=== PATIENT | female | born 1950 | race Caucasian/White ===

== ENCOUNTER 2017-07-02 18:34 | Inpatient (IN) | payer OTHER ==
[~2017-07-02] VITALS: Ht 162.6 cm; Wt 66.9 kg
[~2017-07-02 18:34] MED LIST: ASPIRIN325 MG PO; ATARAX,VISTARIL25 MG PO; CARVEDILOL25 MG PO; CLONAZEPAM0.5 MG PO; COZAAR25 MG PO; CYMBALTA30 MG PO; DOCUSATE SODIU100 MG PO; EPITOL200 MG PO; FENOFIBRIC ACI135 MG PO; GABAPENTIN100 MG PO; GABAPENTIN400 MG PO; HYDROCHLOROTH12.5 M3 PO; HYDROCHLOROTHIA25 MG PO; HYOMAX0.125 MG PO; K-DUR20 MEQ PO; KENALOG,ARISTOC80 G1 TP; LAMICTAL150 M1 PO; LAMICTAL200 MG PO; LANSOPRAZOLE30 MG PO; LEVAQUIN500 MG PO; LOMOTIL,LONO1 TABLET PO; LOPRESSOR25 MG PO; LOSARTAN POTAS100 MG PO; Levsin PO; METOPROLOL SUCC25 MG PO; METOPROLOL TART25 MG PO; NIFEDIPINE ER90 MG PO; NORVASC5 MG PO; OLANZAPINE2.5 MG PO; OXYCODONE HCL15 MG PO; PLAVIX75 MG PO; POTASSIUM CHLO10 ME3 PO; PRAVASTATIN SOD80 MG PO; PREDNISONE20 MG PO; PREVACID30 MG PO; REMERON15 M2 PO; Remeron PO; SEROQUEL200 MG PO; TEGRETOL200 MG PO; TOPROL XL50 MG PO; TRAZODONE HCL50 MG PO; TRILIPIX135 MG PO; TYLENOL WITH C1 EACH PO; Toprol XL PO; ULTRAM50 MG PO; VALSARTAN320 MG PO; WELLBUTRIN SR100 MG PO; XANAX0.5 MG PO; XANAX1 MG PO; ZOFRAN4 MG PO
[2017-07-02 19:22] LABS: HEMATOCRIT 40.1 % (36.0-46.0); MCH 29.7 PG (29.0-34.0); MCHC 34.9 G/DL (30.0-36.0); MCV 85.1 FL (83-99); MEAN PLAT.VOLUME 12.1 uM^3 (9.5-12.4); PLATELET COUNT 93 K/uL (156-360); RBC DIS.WIDTH-CV 12.3 % (11.8-14.6); RBC DIS.WIDTH-SD 38.2 % (39-53); RED BLOOD COUNT 4.71 M/uL (3.80-5.20); WHITE BLOOD COUNT 6.2 K/uL (4.1-10.2)
[2017-07-02 19:34] LABS: ANION GAP 24 MEQ/L (2-14); CHLORIDE 90 MEQ/L (99-109); DIRECT BILIRUBIN 0.1 mg/dL (0.0-0.3); POTASSIUM 3.6 MEQ/L (3.7-5.4); SAMPLE HEMOLYSIS CHECK 0; SAMPLE ICTERIC CHECK 0; SAMPLE LIPEMIA CHECK 0; SODIUM 130 MEQ/L (136-147); TOTAL BILIRUBIN 0.5 MG/DL (0.0-1.0)
[2017-07-02 19:59] LABS: BASE EXCESS -10.3 mEq/L (-3 to +3); BICARBONATE 14.8 mEq/L (22-26); CARBOXY HGB 1.9 % (0-5); COMMENTS - BLOOD GASES A+C+; DEVICE RA; PCO2 30 mm Hg (35-45); PO2 73 mm Hg (80-100); SITE LR; TOTAL RESP RATE 16 resp/min
[2017-07-02 20:03] LABS: ALKALINE PHOSPHATASE 78 IU/L (3-129); GFR ESTIMATE (CALCULATED) 8 mL/min/; GLUCOSE 164 mg/dL (70-99); LIPASE 308 U/L (1.0-51.0); UREA NITROGEN (BUN) 106 mg/dL (9-23)
[2017-07-02] MEDS ORDERED: LAMOTRIGINE200 MG PO (22:15)
[2017-07-02] MEDS ORDERED: POTASSIUM CHLO10 ME4 PO (22:16)
[2017-07-02] MEDS ORDERED: OLANZAPINE5 MG PO (22:16)
[2017-07-02] MEDS ORDERED: MIRTAZAPINE30 MG PO (22:17)
[2017-07-02] MEDS ORDERED: ZOLPIDEM TARTRA10 MG PO (22:18)
[2017-07-02] MEDS ORDERED: ERGOCALCIF50000 UNIT PO (22:19)
[2017-07-02] MEDS ORDERED: MAGNESIUM CHLOR64 MG PO (22:28)
[2017-07-03 00:39] VITALS: BP 177/77
[2017-07-03 06:05] LABS: ADD MIUA? YES; BILIRUBIN NEGATIVE; BLOOD MODERATE; COLOR YELLOW ((YELLOW)); GLUCOSE (STRIP) NEGATIVE; KETONES NEGATIVE; LEUKOCYTES LARGE; NITRITE NEGATIVE; PROTEIN (STRIP) NEGATIVE; SPECIFIC GRAVITY 1.013 (1.000-1.030); UROBILINOGEN 0.2 MG/DL (0.2-1.0)
[2017-07-03 06:37] LABS: HEMATOCRIT 35.4 % (36.0-46.0); MCH 30.7 PG (29.0-34.0); MCHC 35.6 G/DL (30.0-36.0); MCV 86.1 FL (83-99); MEAN PLAT.VOLUME 12.3 uM^3 (9.5-12.4); PLATELET COUNT 85 K/uL (156-360); RBC DIS.WIDTH-CV 12.6 % (11.8-14.6); RED BLOOD COUNT 4.11 M/uL (3.80-5.20); WHITE BLOOD COUNT 6.6 K/uL (4.1-10.2)
[2017-07-03 06:53] LABS: BACTERIA 3+ /HPF; CASTS NONE SEEN /LPF; CRYSTALS NONE SEEN; EPITHELIAL CELLS 2+ /HPF; MUCUS NONE SEEN /LPF; UCUL ADDED? YES; WHITE BLOOD CELLS 15-20 /HPF (0-5)
[2017-07-03 07:15] VITALS: BP 159/80
[2017-07-03 07:17] LABS: ANION GAP 20 MEQ/L (2-14); CHLORIDE 101 MEQ/L (99-109); GFR ESTIMATE (CALCULATED) 12 mL/min/; GLUCOSE 113 mg/dL (70-99); POTASSIUM 3.5 MEQ/L (3.7-5.4); SAMPLE HEMOLYSIS CHECK 0; SAMPLE ICTERIC CHECK 0; SAMPLE LIPEMIA CHECK 0; SODIUM 137 MEQ/L (136-147); UREA NITROGEN (BUN) 99 mg/dL (9-23)
[2017-07-03 08:34] LABS: AMYLASE 208 IU/L (1-118); HDL CHOLESTEROL 31 MG/DL (Desirable>=50); LDL CHOLESTEROL 113 mg/dL (Desirable<100); NON-HDL CHOLESTEROL 164 mg/dL (Desirable<160); TOTAL CHOLESTEROL 195 mg/dL (Desirable<200); TRIGLYCERIDES 254 MG/DL (Normal: <150)
[2017-07-03 15:50] VITALS: BP 102/56
[2017-07-03 16:20] LABS: ANION GAP 15 MEQ/L (2-14); CHLORIDE 105 MEQ/L (99-109); GLUCOSE 105 mg/dL (70-99); POTASSIUM 3.5 MEQ/L (3.7-5.4); SAMPLE HEMOLYSIS CHECK 0; SAMPLE ICTERIC CHECK 0; SAMPLE LIPEMIA CHECK 0; SODIUM 138 MEQ/L (136-147); UREA NITROGEN (BUN) 92 mg/dL (9-23)
[2017-07-03 16:28] LABS: GFR ESTIMATE (CALCULATED) 16 mL/min/
[2017-07-03 20:44] VITALS: BP 90/50
[2017-07-03 23:51] VITALS: BP 117/56
[2017-07-04 06:47] VITALS: BP 109/56
[2017-07-04 06:55] LABS: EOSINOPHIL (%) 0.3 % (0-5); IMMATURE GRANULOCYTE COUNT 0.1 K/uL; INSTRUMENT ABS NEUTROPHIL CT 4.3 K/uL; LYMPHOCYTE COUNT 1.1 K/uL (1.0-2.8); MCH 31.5 PG (29.0-34.0); MCHC 36.8 G/DL (30.0-36.0); MCV 85.6 FL (83-99); MEAN PLAT.VOLUME 11.9 uM^3 (9.5-12.4); MONOCYTE (%) 10.6 % (3-12); MONOCYTE COUNT 0.7 K/uL (0-0.8); NEUTROPHIL (%) 69.7 % (45-76); NEUTROPHIL COUNT 4.3 K/uL (1.8-6.4); PLATELET COUNT 63 K/uL (156-360); RBC DIS.WIDTH-CV 12.6 % (11.8-14.6); RBC DIS.WIDTH-SD 39.6 % (39-53); RED BLOOD COUNT 3.27 M/uL (3.80-5.20); WHITE BLOOD COUNT 6.2 K/uL (4.1-10.2)
[2017-07-04 08:14] LABS: ALKALINE PHOSPHATASE 62 IU/L (3-129); ANION GAP 10 MEQ/L (2-14); CHLORIDE 111 MEQ/L (99-109); GLUCOSE 95 mg/dL (70-99); POTASSIUM 3.7 MEQ/L (3.7-5.4); SAMPLE HEMOLYSIS CHECK 0; SAMPLE ICTERIC CHECK 0; SAMPLE LIPEMIA CHECK 0; SODIUM 141 MEQ/L (136-147); UREA NITROGEN (BUN) 61 mg/dL (9-23)
[2017-07-04 08:15] LABS: GFR ESTIMATE (CALCULATED) 34 mL/min/; TOTAL BILIRUBIN 0.8 MG/DL (0.0-1.0)
[2017-07-04 08:31] LABS: ANION GAP 12 MEQ/L (2-14); CHLORIDE 110 MEQ/L (99-109); CREATINE KINASE 539 IU/L (1-294); GFR ESTIMATE (CALCULATED) 34 mL/min/; GLUCOSE 95 mg/dL (70-99); LIPASE 259 U/L (1.0-51.0); POTASSIUM 3.6 MEQ/L (3.7-5.4); SAMPLE HEMOLYSIS CHECK 0; SAMPLE ICTERIC CHECK 0; SAMPLE LIPEMIA CHECK 0; SODIUM 141 MEQ/L (136-147); UREA NITROGEN (BUN) 62 mg/dL (9-23); URIC ACID 11.5 mg/dL (3.1-9.2)
[2017-07-04 08:32] LABS: MAGNESIUM < 0.5 mg/dl (1.3-2.7)
[2017-07-04 10:51] VITALS: BP 125/60
[2017-07-04 12:43] LABS: Estimated Average Glucose 126 mg/dL (70-123)
[2017-07-04 15:10] VITALS: BP 111/59
[2017-07-04 16:19] LABS: POINT-OF-CARE METER ID UU13113774
[2017-07-04 21:38] LABS: POINT-OF-CARE METER ID UU13113774
[2017-07-04 23:47] VITALS: BP 116/70
[2017-07-05 03:42] VITALS: BP 102/53
[2017-07-05 07:00] VITALS: BP 127/62
[2017-07-05 08:19] LABS: POINT-OF-CARE METER ID UU13113725
[2017-07-05 09:32] LABS: EOSINOPHIL (%) 0.6 % (0-5); HEMATOCRIT 33.7 % (36.0-46.0); IMMATURE GRANULOCYTE (%) 0.6 % (0.0-0.7); INSTRUMENT ABS NEUTROPHIL CT 4.7 K/uL; LYMPHOCYTE COUNT 1.3 K/uL (1.0-2.8); MCH 30.9 PG (29.0-34.0); MCV 88.2 FL (83-99); MEAN PLAT.VOLUME 12.6 uM^3 (9.5-12.4); MONOCYTE (%) 8.4 % (3-12); MONOCYTE COUNT 0.6 K/uL (0-0.8); NEUTROPHIL (%) 70.5 % (45-76); NEUTROPHIL COUNT 4.7 K/uL (1.8-6.4); PLATELET COUNT 67 K/uL (156-360); RBC DIS.WIDTH-CV 12.7 % (11.8-14.6); RBC DIS.WIDTH-SD 41.1 % (39-53); RED BLOOD COUNT 3.82 M/uL (3.80-5.20); WHITE BLOOD COUNT 6.7 K/uL (4.1-10.2)
[2017-07-05 10:26] LABS: ALKALINE PHOSPHATASE 70 IU/L (3-129); ANION GAP 13 MEQ/L (2-14); CHLORIDE 107 MEQ/L (99-109); POTASSIUM 3.6 MEQ/L (3.7-5.4); SAMPLE HEMOLYSIS CHECK 0; SAMPLE ICTERIC CHECK 0; SAMPLE LIPEMIA CHECK 0; SODIUM 141 MEQ/L (136-147); UREA NITROGEN (BUN) 33 mg/dL (9-23)
[2017-07-05 10:28] LABS: GFR ESTIMATE (CALCULATED) 52 mL/min/; GLUCOSE 158 mg/dL (70-99); MAGNESIUM 2.5 mg/dl (1.3-2.7); TOTAL BILIRUBIN 0.6 MG/DL (0.0-1.0)
[2017-07-05 10:59] LABS: LIPASE 111 U/L (1.0-51.0)
[2017-07-05 11:12] LABS: POINT-OF-CARE METER ID UU13113725
[2017-07-05 22:01] LABS: POINT-OF-CARE METER ID UU13113725
[2017-07-05 23:32] VITALS: BP 121/54
[2017-07-06 05:43] LABS: POINT-OF-CARE METER ID UU13113725
[2017-07-06 05:58] LABS: EOSINOPHIL (%) 2.2 % (0-5); EOSINOPHIL COUNT 0.1 K/uL (0-0.3); HEMATOCRIT 27.1 % (36.0-46.0); IMMATURE GRANULOCYTE (%) 0.5 % (0.0-0.7); INSTRUMENT ABS NEUTROPHIL CT 4.2 K/uL; LYMPHOCYTE COUNT 1.3 K/uL (1.0-2.8); MCH 29.6 PG (29.0-34.0); MCHC 33.9 G/DL (30.0-36.0); MCV 87.1 FL (83-99); MEAN PLAT.VOLUME 12.5 uM^3 (9.5-12.4); MONOCYTE (%) 10.4 % (3-12); MONOCYTE COUNT 0.7 K/uL (0-0.8); NEUTROPHIL (%) 66.4 % (45-76); NEUTROPHIL COUNT 4.2 K/uL (1.8-6.4); PLATELET COUNT 59 K/uL (156-360); RBC DIS.WIDTH-CV 12.7 % (11.8-14.6); RBC DIS.WIDTH-SD 40.8 % (39-53); RED BLOOD COUNT 3.11 M/uL (3.80-5.20); WHITE BLOOD COUNT 6.3 K/uL (4.1-10.2)
[2017-07-06 07:30] LABS: ALKALINE PHOSPHATASE 64 IU/L (3-129); ANION GAP 9 MEQ/L (2-14); CHLORIDE 106 MEQ/L (99-109); GFR ESTIMATE (CALCULATED) > 59 mL/min/; POTASSIUM 3.6 MEQ/L (3.7-5.4); SAMPLE HEMOLYSIS CHECK 0; SAMPLE ICTERIC CHECK 0; SAMPLE LIPEMIA CHECK 0; SODIUM 139 MEQ/L (136-147); TOTAL BILIRUBIN 0.5 MG/DL (0.0-1.0); UREA NITROGEN (BUN) 26 mg/dL (9-23)
[2017-07-06 07:31] LABS: GLUCOSE 102 mg/dL (70-99)
[2017-07-06 07:56] VITALS: BP 97/50
[2017-07-06 09:05] LABS: POC NON-PRINT COM 1 ND
[2017-07-06 10:52] LABS: CREATINE KINASE 247 IU/L (1-294)
[2017-07-06 11:24] LABS: LIPASE 88 U/L (1.0-51.0)
[2017-07-06 11:47] LABS: POINT-OF-CARE METER ID UU13113725
[2017-07-06 15:19] VITALS: BP 109/70
[2017-07-06 18:05] LABS: HEMATOCRIT 26.4 % (36.0-46.0); MCH 30.3 PG (29.0-34.0); MCHC 34.5 G/DL (30.0-36.0); MEAN PLAT.VOLUME 12.4 uM^3 (9.5-12.4); PLATELET COUNT 60 K/uL (156-360); RBC DIS.WIDTH-CV 12.7 % (11.8-14.6); WHITE BLOOD COUNT 6.2 K/uL (4.1-10.2)
[2017-07-06 18:20] LABS: INTER. NORMALIZED RATIO 1.7; PROTHROMBIN TIME 19.1 SEC (10.2-12.9)
[2017-07-06 18:23] LABS: PTT 31.9 SEC (25-37)
[2017-07-06 21:17] LABS: POINT-OF-CARE METER ID UU13113725
[2017-07-07 00:16] VITALS: BP 98/52
[2017-07-07 04:45] LABS: C DIFF TOXIN NEGATIVE (NEGATIVE)
[2017-07-07 04:49] LABS: PROBE CHECK PASS; SPECIMEN PROCESSING CONTROL PASS
[2017-07-07 06:18] LABS: POINT-OF-CARE METER ID UU13113774
[2017-07-07 06:29] LABS: INTER. NORMALIZED RATIO 1.3; PROTHROMBIN TIME 14.7 SEC (10.2-12.9)
[2017-07-07 07:19] LABS: EOSINOPHIL (%) 2.6 % (0-5); EOSINOPHIL COUNT 0.2 K/uL (0-0.3); HEMATOCRIT 26.4 % (36.0-46.0); IMM.RETIC FRACTION 8.4 % (3-19); IMMATURE GRANULOCYTE (%) 0.7 % (0.0-0.7); INSTRUMENT ABS NEUTROPHIL CT 3.7 K/uL; LYMPHOCYTE COUNT 1.2 K/uL (1.0-2.8); MCH 30.2 PG (29.0-34.0); MCHC 34.1 G/DL (30.0-36.0); MCV 88.6 FL (83-99); MEAN PLAT.VOLUME 12.3 uM^3 (9.5-12.4); MONOCYTE (%) 11.1 % (3-12); MONOCYTE COUNT 0.6 K/uL (0-0.8); NEUTROPHIL (%) 64.2 % (45-76); NEUTROPHIL COUNT 3.7 K/uL (1.8-6.4); PLATELET COUNT 60 K/uL (156-360); RBC DIS.WIDTH-CV 12.6 % (11.8-14.6); RBC DIS.WIDTH-SD 41.4 % (39-53); RED BLOOD COUNT 2.98 M/uL (3.80-5.20); RETIC HGB EQUIVALENT 31.3 (28-36); WHITE BLOOD COUNT 5.8 K/uL (4.1-10.2)
[2017-07-07 07:24] VITALS: BP 110/55
[2017-07-07 09:27] LABS: ALKALINE PHOSPHATASE 64 IU/L (3-129); ANION GAP 8 MEQ/L (2-14); CHLORIDE 107 MEQ/L (99-109); FERRITIN 237 NG/ML (10-291); GFR ESTIMATE (CALCULATED) 52 mL/min/; GLUCOSE 85 mg/dL (70-99); IRON 78 MCG/DL (35-150); LIPASE 160 U/L (1.0-51.0); POTASSIUM 4.1 MEQ/L (3.7-5.4); SAMPLE HEMOLYSIS CHECK 0; SAMPLE ICTERIC CHECK 0; SAMPLE LIPEMIA CHECK 0; SODIUM 138 MEQ/L (136-147); TOTAL BILIRUBIN 0.5 MG/DL (0.0-1.0); UREA NITROGEN (BUN) 18 mg/dL (9-23)
[2017-07-07 09:38] LABS: AMYLASE 50 IU/L (1-118); MAGNESIUM 1.4 mg/dl (1.3-2.7)
[2017-07-07 11:43] LABS: POINT-OF-CARE METER ID UU13113725
[2017-07-07 16:03] LABS: POINT-OF-CARE METER ID UU13113774
[2017-07-07 16:16] VITALS: BP 92/50
[2017-07-07 17:55] LABS: HEMATOCRIT 27.4 % (36.0-46.0); MCH 29.8 PG (29.0-34.0); MCHC 33.2 G/DL (30.0-36.0); MCV 89.8 FL (83-99); MEAN PLAT.VOLUME 12.2 uM^3 (9.5-12.4); PLATELET COUNT 67 K/uL (156-360); RBC DIS.WIDTH-CV 12.7 % (11.8-14.6); RBC DIS.WIDTH-SD 41.9 % (39-53); RED BLOOD COUNT 3.05 M/uL (3.80-5.20); WHITE BLOOD COUNT 5.8 K/uL (4.1-10.2)
[2017-07-07 21:30] LABS: POINT-OF-CARE METER ID UU13113774
[2017-07-08 00:03] VITALS: BP 104/61
[2017-07-08 06:19] LABS: EOSINOPHIL (%) 3.8 % (0-5); EOSINOPHIL COUNT 0.2 K/uL (0-0.3); HEMATOCRIT 27.6 % (36.0-46.0); IMMATURE GRANULOCYTE (%) 0.2 % (0.0-0.7); INSTRUMENT ABS NEUTROPHIL CT 2.8 K/uL; LYMPHOCYTE COUNT 1.4 K/uL (1.0-2.8); MCH 30.2 PG (29.0-34.0); MCHC 33.7 G/DL (30.0-36.0); MCV 89.6 FL (83-99); MEAN PLAT.VOLUME 12.4 uM^3 (9.5-12.4); MONOCYTE (%) 10.7 % (3-12); MONOCYTE COUNT 0.5 K/uL (0-0.8); NEUTROPHIL COUNT 2.8 K/uL (1.8-6.4); PLATELET COUNT 73 K/uL (156-360); RBC DIS.WIDTH-CV 12.7 % (11.8-14.6); RBC DIS.WIDTH-SD 41.8 % (39-53); RED BLOOD COUNT 3.08 M/uL (3.80-5.20)
[2017-07-08 06:45] LABS: ALKALINE PHOSPHATASE 72 IU/L (3-129); ANION GAP 7 MEQ/L (2-14); CHLORIDE 104 MEQ/L (99-109); GFR ESTIMATE (CALCULATED) 59 mL/min/; GLUCOSE 86 mg/dL (70-99); MAGNESIUM 1.3 mg/dl (1.3-2.7); POTASSIUM 4.3 MEQ/L (3.7-5.4); SAMPLE HEMOLYSIS CHECK 0; SAMPLE ICTERIC CHECK 0; SAMPLE LIPEMIA CHECK 0; SODIUM 135 MEQ/L (136-147); TOTAL BILIRUBIN 0.4 MG/DL (0.0-1.0); UREA NITROGEN (BUN) 14 mg/dL (9-23)
[2017-07-08 07:10] VITALS: BP 112/55
[2017-07-08 09:13] LABS: LIPASE 116 U/L (1.0-51.0)
[2017-07-08 11:00] VITALS: BP 91/53
[2017-07-08 15:15] VITALS: BP 99/52
[2017-07-08 17:34] LABS: HEMATOCRIT 28.2 % (36.0-46.0); MCHC 33.3 G/DL (30.0-36.0); MCV 90.1 FL (83-99); MEAN PLAT.VOLUME 11.5 uM^3 (9.5-12.4); PLATELET COUNT 76 K/uL (156-360); RBC DIS.WIDTH-CV 12.6 % (11.8-14.6); RBC DIS.WIDTH-SD 41.4 % (39-53); RED BLOOD COUNT 3.13 M/uL (3.80-5.20); WHITE BLOOD COUNT 5.7 K/uL (4.1-10.2)
[2017-07-08 19:59] VITALS: BP 111/73
[2017-07-09 05:55] LABS: EOSINOPHIL (%) 3.5 % (0-5); EOSINOPHIL COUNT 0.2 K/uL (0-0.3); HEMATOCRIT 26.8 % (36.0-46.0); IMMATURE GRANULOCYTE (%) 0.8 % (0.0-0.7); INSTRUMENT ABS NEUTROPHIL CT 2.7 K/uL; LYMPHOCYTE COUNT 1.5 K/uL (1.0-2.8); MCH 30.3 PG (29.0-34.0); MCV 89.3 FL (83-99); MEAN PLAT.VOLUME 12.1 uM^3 (9.5-12.4); MONOCYTE (%) 12.9 % (3-12); MONOCYTE COUNT 0.7 K/uL (0-0.8); NEUTROPHIL (%) 53.2 % (45-76); NEUTROPHIL COUNT 2.7 K/uL (1.8-6.4); PLATELET COUNT 78 K/uL (156-360); RBC DIS.WIDTH-CV 12.6 % (11.8-14.6); RBC DIS.WIDTH-SD 41.3 % (39-53); WHITE BLOOD COUNT 5.1 K/uL (4.1-10.2)
[2017-07-09 06:51] LABS: ALKALINE PHOSPHATASE 70 IU/L (3-129); ANION GAP 8 MEQ/L (2-14); CHLORIDE 104 MEQ/L (99-109); GFR ESTIMATE (CALCULATED) > 59 mL/min/; GLUCOSE 87 mg/dL (70-99); POTASSIUM 4.6 MEQ/L (3.7-5.4); SAMPLE HEMOLYSIS CHECK 0; SAMPLE ICTERIC CHECK 0; SAMPLE LIPEMIA CHECK 0; SODIUM 134 MEQ/L (136-147); TOTAL BILIRUBIN 0.4 MG/DL (0.0-1.0); UREA NITROGEN (BUN) 12 mg/dL (9-23)
[2017-07-09 07:00] VITALS: BP 92/46
[2017-07-09 09:49] LABS: MAGNESIUM 1.5 mg/dl (1.3-2.7)
[2017-07-09 11:00] VITALS: BP 111/55
[2017-07-09 15:00] VITALS: BP 106/52
[2017-07-09 19:33] VITALS: BP 107/53
[2017-07-10] VITALS: BP 110/62
[2017-07-10 06:18] LABS: EOSINOPHIL COUNT 0.2 K/uL (0-0.3); HEMATOCRIT 28.2 % (36.0-46.0); IMMATURE GRANULOCYTE (%) 0.6 % (0.0-0.7); INSTRUMENT ABS NEUTROPHIL CT 2.9 K/uL; LYMPHOCYTE COUNT 1.5 K/uL (1.0-2.8); MCH 29.7 PG (29.0-34.0); MCV 90.1 FL (83-99); MEAN PLAT.VOLUME 11.8 uM^3 (9.5-12.4); MONOCYTE (%) 15.3 % (3-12); MONOCYTE COUNT 0.8 K/uL (0-0.8); NEUTROPHIL (%) 53.5 % (45-76); NEUTROPHIL COUNT 2.9 K/uL (1.8-6.4); PLATELET COUNT 89 K/uL (156-360); RBC DIS.WIDTH-CV 12.6 % (11.8-14.6); RBC DIS.WIDTH-SD 41.1 % (39-53); RED BLOOD COUNT 3.13 M/uL (3.80-5.20); WHITE BLOOD COUNT 5.4 K/uL (4.1-10.2)
[2017-07-10 06:52] LABS: ANION GAP 5 MEQ/L (2-14); CHLORIDE 104 MEQ/L (99-109); GFR ESTIMATE (CALCULATED) 59 mL/min/; GLUCOSE 90 mg/dL (70-99); LIPASE 131 U/L (1.0-51.0); MAGNESIUM 1.5 mg/dl (1.3-2.7); POTASSIUM 4.8 MEQ/L (3.7-5.4); SAMPLE HEMOLYSIS CHECK 0; SAMPLE ICTERIC CHECK 0; SAMPLE LIPEMIA CHECK 0; SODIUM 133 MEQ/L (136-147); UREA NITROGEN (BUN) 11 mg/dL (9-23)
[2017-07-10 07:15] VITALS: BP 107/56
[2017-07-10] MEDS ORDERED: ASPIRIN81 M2 PO (12:46)
[2017-07-10] MEDS ORDERED: FOLIC ACID1 MG PO (12:48)
[2017-07-10] MEDS ORDERED: IMODIUM A-D2 M2 PO (12:50)
[2017-07-10] MEDS ORDERED: Vitamin B-12 SL (12:50)
[2017-07-10 15:50] VITALS: BP 95/55
== END 2017-07-10 16:57 | disposition home or self-care (01) | DRG 683 ==
LOC: EME 18:34 → EDOF 21:18 → 5EAST 21:18 → CANRESERV 21:28 → ENRESERV 21:28 → 5EAST 22:32
PROVIDERS: Emergency Medicine; Family Medicine; Hospitalist; Internal Medicine Nephrology; Specialist
DX: N17.9 Acute kidney failure, unspecified (principal); E87.1 Hypo-osmolality and hyponatremia; F05 Delirium due to known physiological condition; E87.2 Acidosis; E83.51 Hypocalcemia; D69.6 Thrombocytopenia, unspecified; E11.51 Type 2 diabetes mellitus with diabetic peripheral angiopathy without gangrene; Z78.1 Physical restraint status; E83.42 Hypomagnesemia; N39.0 Urinary tract infection, site not specified; E87.6 Hypokalemia; F31.9 Bipolar disorder, unspecified; B96.20 Unspecified Escherichia coli [E. coli] as the cause of diseases classified elsewhere; D64.9 Anemia, unspecified; G89.29 Other chronic pain; E78.5 Hyperlipidemia, unspecified; R91.1 Solitary pulmonary nodule; R19.7 Diarrhea, unspecified; R74.8 Abnormal levels of other serum enzymes; B96.89 Other specified bacterial agents as the cause of diseases classified elsewhere; E86.0 Dehydration; F41.1 Generalized anxiety disorder; F17.210 Nicotine dependence, cigarettes, uncomplicated; K21.9 Gastro-esophageal reflux disease without esophagitis; I10 Essential (primary) hypertension; Z90.710 Acquired absence of both cervix and uterus; Z90.49 Acquired absence of other specified parts of digestive tract; Z82.3 Family history of stroke; Z79.02 Long term (current) use of antithrombotics/antiplatelets; Z79.82 Long term (current) use of aspirin; Z79.899 Other long term (current) drug therapy
CPT/HCPCS: 36600; 71020; 74176; 76705; 76770; 80048; 80048 91; 80053; 80061; 80069; 80076; 81003; 82150; 82272; 82330; 82550; 82570; 82607; 82728; 82746; 82803; 82948; 83036; 83540; 83605; 83690; 83735; 84100; 84156; 84443; 84466; 84550; 85025; 85027; 85045; 85610; 85730; 87045; 87046; 87077; 87086; 87177; 87186; 87493; 87506; 99281; 99284; C9113; J0610; J0636; J0696; J1200; J1630; J1644; J1815; J2270; J2405; J3475; J3480; J3486; J7030; J7040; J7050; J7120

== ENCOUNTER 2017-07-18 12:48 | Inpatient (IN) | payer OTHER ==
[~2017-07-18] VITALS: Ht 162.6 cm; Wt 58.1 kg
[~2017-07-18 12:48] MED LIST changes: +ASPIRIN81 M2 PO; +ERGOCALCIF50000 UNIT PO; +FOLIC ACID1 MG PO; +IMODIUM A-D2 M2 PO; +LAMOTRIGINE200 MG PO; +MAGNESIUM CHLOR64 MG PO; +MIRTAZAPINE30 MG PO; +OLANZAPINE5 MG PO; +POTASSIUM CHLO10 ME4 PO; +Vitamin B-12 SL; +ZOLPIDEM TARTRA10 MG PO
[2017-07-18 13:56] LABS: EOSINOPHIL (%) 0.1 % (0-5); HEMATOCRIT 36.8 % (36.0-46.0); IMMATURE GRANULOCYTE (%) 0.4 % (0.0-0.7); IMMATURE GRANULOCYTE COUNT 0.1 K/uL; INSTRUMENT ABS NEUTROPHIL CT 9.4 K/uL; LYMPHOCYTE COUNT 1.1 K/uL (1.0-2.8); MCH 30.4 PG (29.0-34.0); MCHC 35.3 G/DL (30.0-36.0); MCV 86.2 FL (83-99); MEAN PLAT.VOLUME 11.2 uM^3 (9.5-12.4); MONOCYTE COUNT 1.6 K/uL (0-0.8); NEUTROPHIL (%) 76.9 % (45-76); NEUTROPHIL COUNT 9.4 K/uL (1.8-6.4); PLATELET COUNT 256 K/uL (156-360); RBC DIS.WIDTH-CV 12.9 % (11.8-14.6); RBC DIS.WIDTH-SD 40.4 % (39-53); RED BLOOD COUNT 4.27 M/uL (3.80-5.20); WHITE BLOOD COUNT 12.2 K/uL (4.1-10.2)
[2017-07-18 14:06] LABS: CHLORIDE 83 mEq/L (99-109); SODIUM 133 mEq/L (136-147)
[2017-07-18 14:08] LABS: GLUCOSE 142 mg/dL (70-99)
[2017-07-18 14:09] LABS: ANION GAP 17 MEQ/L (2-14)
[2017-07-18 14:10] LABS: TOTAL BILIRUBIN 0.4 mg/dL (0.0-1.0)
[2017-07-18 14:11] LABS: ALKALINE PHOSPHATASE 115 IU/L (3-129)
[2017-07-18 14:12] LABS: GFR ESTIMATE (CALCULATED) 15 mL/min/
[2017-07-18 14:13] LABS: UREA NITROGEN (BUN) 24 mg/dL (9-23)
[2017-07-18 14:15] LABS: LIPASE 32 U/L (1.0-51.0)
[2017-07-18 14:16] LABS: POTASSIUM 2.3 mEq/L (3.7-5.4)
[2017-07-18] MEDS ORDERED: OLANZAPINE5 MG PO (15:27)
[2017-07-18] MEDS ORDERED: MAG6464 M2 PO (15:28)
[2017-07-18] MEDS ORDERED: AMBIEN10 MG PO (15:32)
[2017-07-18] MEDS ORDERED: CLONAZEPAM0.5 MG PO (15:34)
[2017-07-18] MEDS ORDERED: REMERON30 M2 PO (15:35)
[2017-07-18] MEDS ORDERED: VALSARTAN320 MG PO (15:35)
[2017-07-18 16:59] LABS: MAGNESIUM 2.2 mg/dL (1.3-2.7)
[2017-07-18 17:06] LABS: CREATINE KINASE 63 IU/L (1-294)
[2017-07-18 18:35] VITALS: BP 134/80
[2017-07-18 19:37] VITALS: BP 125/73
[2017-07-18 20:10] LABS: C DIFF TOXIN ND (NEGATIVE)
[2017-07-18 23:51] VITALS: BP 133/67
[2017-07-19 04:08] VITALS: BP 148/67
[2017-07-19 05:56] LABS: ADD MIUA? YES; BILIRUBIN NEGATIVE; BLOOD NEGATIVE; COLOR AMBER ((YELLOW)); GLUCOSE (STRIP) 50; KETONES NEGATIVE; LEUKOCYTES NEGATIVE; NITRITE NEGATIVE; PROTEIN (STRIP) 30; SPECIFIC GRAVITY 1.019 (1.000-1.030); UROBILINOGEN 0.2 MG/DL (0.2-1.0)
[2017-07-19 06:15] LABS: BACTERIA RARE /HPF; EPITHELIAL CELLS RARE /HPF; HYALINE CASTS 20-30 /LPF; MUCUS 2+ /LPF; UCUL ADDED? YES
[2017-07-19 06:40] LABS: INTER. NORMALIZED RATIO 1.2; PROTHROMBIN TIME 13.7 SEC (10.2-12.9)
[2017-07-19 07:01] LABS: HEMATOCRIT 29.9 % (36.0-46.0); MCH 29.6 PG (29.0-34.0); MCHC 33.1 G/DL (30.0-36.0); MCV 89.3 FL (83-99); MEAN PLAT.VOLUME 10.7 uM^3 (9.5-12.4); PLATELET COUNT 183 K/uL (156-360); RBC DIS.WIDTH-SD 42.6 % (39-53); RED BLOOD COUNT 3.35 M/uL (3.80-5.20); WHITE BLOOD COUNT 10.1 K/uL (4.1-10.2)
[2017-07-19 07:06] LABS: ABS NEUTROPHIL COUNT 8.7; ATYPICAL LYMPHOCYTE 2.6 %; BAND NEUTROPHILS 9.6 % (0-8.0); EOSINOPHIL ABS CT 0; HEMATOLOGY COMMENT 1 SN; INSTRUMENT ABS NEUTROPHIL CT 7.9 K/uL; LYMPHOCYTES 4.4 % (15.0-45.0); MYELOCYTES 0.9 %; NUCLEATED RBC'S 0.9; PLAT.SUFFICIENCY ADEQUATE; SEG.NEUTROPHILS 76.4 % (46.0-76.0); SMUDGE CELLS 0.9
[2017-07-19 07:12] LABS: ALKALINE PHOSPHATASE 89 IU/L (3-129); ANION GAP 7 MEQ/L (2-14); CHLORIDE 101 MEQ/L (99-109); SAMPLE HEMOLYSIS CHECK 0; SAMPLE ICTERIC CHECK 0; SAMPLE LIPEMIA CHECK 0; SODIUM 136 MEQ/L (136-147); TOTAL BILIRUBIN 0.3 MG/DL (0.0-1.0); UREA NITROGEN (BUN) 24 mg/dL (9-23)
[2017-07-19 07:19] VITALS: BP 143/67
[2017-07-19 07:21] LABS: GFR ESTIMATE (CALCULATED) 37 mL/min/; GLUCOSE 89 mg/dL (70-99); POTASSIUM 3.8 MEQ/L (3.7-5.4)
[2017-07-19 11:42] VITALS: BP 116/60
[2017-07-19 13:34] VITALS: BP 151/86
[2017-07-19 19:19] VITALS: BP 108/65
[2017-07-20 00:09] VITALS: BP 108/64
[2017-07-20 06:50] LABS: ANION GAP 4 MEQ/L (2-14); CHLORIDE 108 MEQ/L (99-109); GFR ESTIMATE (CALCULATED) 52 mL/min/; SAMPLE HEMOLYSIS CHECK 0; SAMPLE ICTERIC CHECK 0; SAMPLE LIPEMIA CHECK 0; SODIUM 131 MEQ/L (136-147); UREA NITROGEN (BUN) 20 mg/dL (9-23)
[2017-07-20 06:51] LABS: GLUCOSE 114 mg/dL (70-99); POTASSIUM 6.2 MEQ/L (3.7-5.4)
[2017-07-20 07:32] LABS: HEMATOCRIT 30.5 % (36.0-46.0); MCH 30.2 PG (29.0-34.0); MCHC 31.8 G/DL (30.0-36.0); MEAN PLAT.VOLUME 10.7 uM^3 (9.5-12.4); PLATELET COUNT 152 K/uL (156-360); RBC DIS.WIDTH-CV 13.1 % (11.8-14.6); RBC DIS.WIDTH-SD 45.9 % (39-53); RED BLOOD COUNT 3.21 M/uL (3.80-5.20); WHITE BLOOD COUNT 7.8 K/uL (4.1-10.2)
[2017-07-20 07:49] VITALS: BP 110/62
[2017-07-20 07:57] LABS: POINT-OF-CARE METER ID UU14188625
[2017-07-20 08:30] LABS: POINT-OF-CARE METER ID UU13113717
[2017-07-20 13:49] LABS: ANION GAP 9 MEQ/L (2-14); CHLORIDE 107 MEQ/L (99-109); GFR ESTIMATE (CALCULATED) 47 mL/min/; GLUCOSE 137 mg/dL (70-99); POTASSIUM 4.7 MEQ/L (3.7-5.4); SAMPLE HEMOLYSIS CHECK 0; SAMPLE ICTERIC CHECK 0; SAMPLE LIPEMIA CHECK 0; SODIUM 133 MEQ/L (136-147); UREA NITROGEN (BUN) 20 mg/dL (9-23)
[2017-07-20 16:15] VITALS: BP 139/67
[2017-07-20 20:05] VITALS: BP 162/71
[2017-07-20 23:28] VITALS: BP 158/70; BP 172/74
[2017-07-21 03:38] VITALS: BP 179/75; BP 194/81
[2017-07-21 07:03] LABS: MCH 29.4 PG (29.0-34.0); MCV 91.7 FL (83-99); MEAN PLAT.VOLUME 10.6 uM^3 (9.5-12.4); RBC DIS.WIDTH-CV 12.9 % (11.8-14.6); RBC DIS.WIDTH-SD 43.7 % (39-53); RED BLOOD COUNT 3.27 M/uL (3.80-5.20); WHITE BLOOD COUNT 11.7 K/uL (4.1-10.2)
[2017-07-21 07:07] VITALS: BP 163/76
[2017-07-21 07:19] LABS: ANION GAP 7 MEQ/L (2-14); CHLORIDE 107 MEQ/L (99-109); GFR ESTIMATE (CALCULATED) 59 mL/min/; POTASSIUM 4.4 MEQ/L (3.7-5.4); SAMPLE HEMOLYSIS CHECK 0; SAMPLE ICTERIC CHECK 0; SAMPLE LIPEMIA CHECK 0; SODIUM 135 MEQ/L (136-147); UREA NITROGEN (BUN) 16 mg/dL (9-23)
[2017-07-21 07:25] LABS: GLUCOSE 85 mg/dL (70-99)
[2017-07-21 07:29] LABS: PLATELET COUNT 227 K/uL (156-360)
[2017-07-21 15:14] VITALS: BP 125/68
[2017-07-21 19:45] VITALS: BP 137/68
[2017-07-21 23:48] VITALS: BP 135/63
[2017-07-22 04:05] VITALS: BP 136/74
[2017-07-22 06:56] LABS: HEMATOCRIT 37.5 % (36.0-46.0); MCH 30.3 PG (29.0-34.0); MCHC 33.6 G/DL (30.0-36.0); MCV 90.1 FL (83-99); MEAN PLAT.VOLUME 10.4 uM^3 (9.5-12.4); RBC DIS.WIDTH-CV 13.1 % (11.8-14.6); RBC DIS.WIDTH-SD 43.3 % (39-53); WHITE BLOOD COUNT 15.3 K/uL (4.1-10.2)
[2017-07-22 06:59] LABS: RED BLOOD COUNT 4.16 M/uL (3.80-5.20)
[2017-07-22 07:00] LABS: PLATELET COUNT 300 K/uL (156-360)
[2017-07-22 07:09] VITALS: BP 121/80
[2017-07-22 07:56] LABS: ANION GAP 9 MEQ/L (2-14); CHLORIDE 103 MEQ/L (99-109); GFR ESTIMATE (CALCULATED) 43 mL/min/; GLUCOSE 96 mg/dL (70-99); POTASSIUM 4.7 MEQ/L (3.7-5.4); SAMPLE HEMOLYSIS CHECK 0; SAMPLE ICTERIC CHECK 0; SAMPLE LIPEMIA CHECK 0; SODIUM 136 MEQ/L (136-147); UREA NITROGEN (BUN) 18 mg/dL (9-23)
[2017-07-22 15:18] VITALS: BP 152/100
[2017-07-22 23:58] VITALS: BP 108/70
[2017-07-23 06:50] LABS: ANION GAP 6 MEQ/L (2-14); CHLORIDE 107 MEQ/L (99-109); GFR ESTIMATE (CALCULATED) 37 mL/min/; GLUCOSE 109 mg/dL (70-99); SAMPLE HEMOLYSIS CHECK 0; SAMPLE ICTERIC CHECK 0; SAMPLE LIPEMIA CHECK 0; SODIUM 134 MEQ/L (136-147); UREA NITROGEN (BUN) 26 mg/dL (9-23)
[2017-07-23 07:13] VITALS: BP 165/84
[2017-07-23 15:11] VITALS: BP 166/76
[2017-07-23 22:10] VITALS: BP 137/60
[2017-07-24 00:22] VITALS: BP 165/74
[2017-07-24 07:31] LABS: ANION GAP 6 MEQ/L (2-14); CHLORIDE 106 MEQ/L (99-109); GFR ESTIMATE (CALCULATED) 52 mL/min/; GLUCOSE 81 mg/dL (70-99); POTASSIUM 5.3 MEQ/L (3.7-5.4); SAMPLE HEMOLYSIS CHECK 0; SAMPLE ICTERIC CHECK 0; SAMPLE LIPEMIA CHECK 0; SODIUM 134 MEQ/L (136-147); UREA NITROGEN (BUN) 21 mg/dL (9-23)
[2017-07-24 08:26] VITALS: BP 183/83
[2017-07-24 15:33] VITALS: BP 133/94
[2017-07-25 00:10] VITALS: BP 145/78
[2017-07-25 06:42] LABS: HEMATOCRIT 31.2 % (36.0-46.0); MCH 29.6 PG (29.0-34.0); MCHC 32.7 G/DL (30.0-36.0); MCV 90.4 FL (83-99); RBC DIS.WIDTH-CV 13.5 % (11.8-14.6); RBC DIS.WIDTH-SD 45.1 % (39-53); RED BLOOD COUNT 3.45 M/uL (3.80-5.20); WHITE BLOOD COUNT 12.3 K/uL (4.1-10.2)
[2017-07-25 07:06] LABS: MEAN PLAT.VOLUME 10.3 uM^3 (9.5-12.4); PLAT.SUFFICIENCY ADEQUATE
[2017-07-25 07:11] LABS: ANION GAP 4 MEQ/L (2-14); CHLORIDE 107 MEQ/L (99-109); GFR ESTIMATE (CALCULATED) 59 mL/min/; GLUCOSE 78 mg/dL (70-99); POTASSIUM 5.3 MEQ/L (3.7-5.4); SAMPLE HEMOLYSIS CHECK 0; SAMPLE ICTERIC CHECK 0; SAMPLE LIPEMIA CHECK 0; SODIUM 137 MEQ/L (136-147); UREA NITROGEN (BUN) 15 mg/dL (9-23)
[2017-07-25 07:19] LABS: PLATELET COUNT 192 K/uL (156-360)
[2017-07-25 07:45] VITALS: BP 188/83
[2017-07-25] MEDS ORDERED: DELZICOL400 M1 PO (11:45)
[2017-07-25 15:54] VITALS: BP 134/63
[2017-07-25 23:38] VITALS: BP 134/66
[2017-07-26 06:43] LABS: HEMATOCRIT 30.9 % (36.0-46.0); MCH 30.3 PG (29.0-34.0); MCHC 33.3 G/DL (30.0-36.0); MCV 90.9 FL (83-99); MEAN PLAT.VOLUME 10.5 uM^3 (9.5-12.4); PLATELET COUNT 168 K/uL (156-360); RBC DIS.WIDTH-CV 13.8 % (11.8-14.6); RBC DIS.WIDTH-SD 45.3 % (39-53); WHITE BLOOD COUNT 12.3 K/uL (4.1-10.2)
[2017-07-26 07:06] LABS: ANION GAP 6 MEQ/L (2-14); CHLORIDE 107 MEQ/L (99-109); GFR ESTIMATE (CALCULATED) > 59 mL/min/; GLUCOSE 77 mg/dL (70-99); POTASSIUM 4.8 MEQ/L (3.7-5.4); SAMPLE HEMOLYSIS CHECK 0; SAMPLE ICTERIC CHECK 0; SAMPLE LIPEMIA CHECK 0; SODIUM 139 MEQ/L (136-147); UREA NITROGEN (BUN) 11 mg/dL (9-23)
[2017-07-26 08:16] VITALS: BP 174/83
[2017-07-26] MEDS ORDERED: CYANOCOBALAM1000 MCG SL (15:55)
[2017-07-26 17:02] VITALS: BP 135/63
[2017-07-26 22:12] VITALS: BP 153/68
[2017-07-27 04:21] VITALS: BP 148/68
[2017-07-27 06:06] LABS: HEMATOCRIT 27.8 % (36.0-46.0); MCH 29.9 PG (29.0-34.0); MCHC 33.1 G/DL (30.0-36.0); MCV 90.3 FL (83-99); MEAN PLAT.VOLUME 10.6 uM^3 (9.5-12.4); PLATELET COUNT 159 K/uL (156-360); RBC DIS.WIDTH-CV 13.7 % (11.8-14.6); RED BLOOD COUNT 3.08 M/uL (3.80-5.20)
[2017-07-27 06:36] LABS: ANION GAP 5 MEQ/L (2-14); CHLORIDE 108 MEQ/L (99-109); GFR ESTIMATE (CALCULATED) > 59 mL/min/; GLUCOSE 77 mg/dL (70-99); POTASSIUM 4.1 MEQ/L (3.7-5.4); SAMPLE HEMOLYSIS CHECK 0; SAMPLE ICTERIC CHECK 0; SAMPLE LIPEMIA CHECK 0; SODIUM 140 MEQ/L (136-147); UREA NITROGEN (BUN) 7 mg/dL (9-23)
[2017-07-27 08:45] VITALS: BP 187/84
[2017-07-27 12:06] VITALS: BP 171/72
[2017-07-27 17:22] VITALS: BP 144/65
[2017-07-27 19:22] VITALS: BP 141/63
[2017-07-27 22:50] VITALS: BP 134/67
[2017-07-28 06:20] LABS: HEMATOCRIT 30.4 % (36.0-46.0); MCH 29.6 PG (29.0-34.0); MCHC 32.2 G/DL (30.0-36.0); MCV 91.8 FL (83-99); MEAN PLAT.VOLUME 10.7 uM^3 (9.5-12.4); PLATELET COUNT 131 K/uL (156-360); RBC DIS.WIDTH-CV 13.8 % (11.8-14.6); RED BLOOD COUNT 3.31 M/uL (3.80-5.20)
[2017-07-28 07:51] VITALS: BP 160/89
[2017-07-28] MEDS ORDERED: BENTYL20 MG PO (09:02)
[2017-07-28] MEDS ORDERED: PREDNISONE5 MG PO (09:02)
[2017-07-28] MEDS ORDERED: ROXICODONE5 MG PO (09:02)
[2017-07-28] MEDS ORDERED: METRONIDAZOLE500 MG PO (09:02)
[2017-07-28] MEDS ORDERED: LOPERAMIDE2 MG PO ×2 (09:02→09:14)
[2017-07-28] MEDS ORDERED: CIPROFLOXACIN500 M1 PO (09:02)
[2017-07-28] MEDS ORDERED: PANTOPRAZOLE SO40 MG PO (09:02)
[2017-07-28] MEDS ORDERED: FLORASTOR250 MG PO (09:02)
[2017-07-28] MEDS ORDERED: TYLENOL REGULA325 MG PO (09:04)
[2017-07-28] MEDS ORDERED: DELZICOL400 M1 PO (09:11)
== END 2017-07-28 11:19 | disposition home health service (06) | DRG 394 ==
LOC: EME 12:48 → EDOF 15:56 → 5SOUTH 15:56 → ENRESERV 16:23 → 5SOUTH 18:06 → ENRESERV 07-26 20:49 → 2EAST 07-26 22:08
PROVIDERS: Hospitalist; Nurse Practitioner Adult Health; Physician Assistant; Physician Assistant Medical; Specialist
DX: K55.9 Vascular disorder of intestine, unspecified (principal); N17.9 Acute kidney failure, unspecified; E87.6 Hypokalemia; E87.5 Hyperkalemia; E78.5 Hyperlipidemia, unspecified; F31.9 Bipolar disorder, unspecified; I95.9 Hypotension, unspecified; D69.6 Thrombocytopenia, unspecified; E87.1 Hypo-osmolality and hyponatremia; E86.0 Dehydration; D64.9 Anemia, unspecified; K21.0 Gastro-esophageal reflux disease with esophagitis; K64.8 Other hemorrhoids; K62.1 Rectal polyp; I10 Essential (primary) hypertension; E11.51 Type 2 diabetes mellitus with diabetic peripheral angiopathy without gangrene; F41.9 Anxiety disorder, unspecified; R31.9 Hematuria, unspecified; F17.210 Nicotine dependence, cigarettes, uncomplicated; K29.80 Duodenitis without bleeding; Z87.440 Personal history of urinary (tract) infections; Z90.710 Acquired absence of both cervix and uterus; Z79.82 Long term (current) use of aspirin; Z79.02 Long term (current) use of antithrombotics/antiplatelets
CPT/HCPCS: 74022; 74176; 80048; 80048 91; 80053; 81003; 82550; 82948; 83516 90; 83690; 83735; 85025; 85027; 85610; 87086; 87177; 87329; 87493; 87502; 87506; 88305; 88342 TC; 93005; 94799; 97530 GO; 99281; 99285; C9113; J0744; J1170; J1644; J2270; J2405; J3010; J3480; J7030; J7040; J7512; S0030

== ENCOUNTER 2017-08-26 07:07 | Inpatient (IN) | payer OTHER ==
[~2017-08-26] VITALS: Ht 162.6 cm; Wt 74.1 kg
[~2017-08-26 07:07] MED LIST changes: +AMBIEN10 MG PO; +BENTYL20 MG PO; +CIPROFLOXACIN500 M1 PO; +CYANOCOBALAM1000 MCG SL; +DELZICOL400 M1 PO; +FLORASTOR250 MG PO; +LOPERAMIDE2 MG PO; +MAG6464 M2 PO; +METRONIDAZOLE500 MG PO; +PANTOPRAZOLE SO40 MG PO; +PREDNISONE5 MG PO; +REMERON30 M2 PO; +ROXICODONE5 MG PO; +TYLENOL REGULA325 MG PO
[2017-08-26 07:48] LABS: HEMATOCRIT 42.3 % (36.0-46.0); MCH 29.8 PG (29.0-34.0); MCHC 35.7 G/DL (30.0-36.0); RBC DIS.WIDTH-CV 13.3 % (11.8-14.6); RBC DIS.WIDTH-SD 40.5 % (39-53); WHITE BLOOD COUNT 17.1 K/uL (4.1-10.2)
[2017-08-26 07:54] LABS: HEMOGLOBIN 15.1 G/DL (11.9-15.5); MCV 83.4 FL (83-99); PLATELET COUNT 259 K/uL (156-360); RED BLOOD COUNT 5.07 M/uL (3.80-5.20)
[2017-08-26 08:00] LABS: ALBUMIN 3.4 g/dL (3.2-4.8); CHLORIDE 84 mEq/L (99-109); SODIUM 127 mEq/L (136-147)
[2017-08-26 08:02] LABS: GLUCOSE 153 mg/dL (70-99)
[2017-08-26 08:03] LABS: TOTAL PROTEIN 6.8 g/dL (6.4-8.3)
[2017-08-26 08:04] LABS: TOTAL BILIRUBIN 0.4 mg/dL (0.0-1.0)
[2017-08-26 08:06] LABS: ALKALINE PHOSPHATASE 116 IU/L (3-129); CREATININE 3.1 mg/dL (0.6-1.3); GFR ESTIMATE (CALCULATED) 16 mL/min/
[2017-08-26 08:07] LABS: UREA NITROGEN (BUN) 35 mg/dL (9-23)
[2017-08-26 08:08] LABS: AST (GOT) 62 IU/L (2-34); POTASSIUM 2.4 mEq/L (3.7-5.4)
[2017-08-26 08:09] LABS: ALT (GPT) 47 IU/L (3-49)
[2017-08-26 08:10] LABS: LIPASE 65 U/L (1.0-51.0)
[2017-08-26] MEDS ORDERED: ASPIR-LOW81 MG PO (12:07)
[2017-08-26 15:00] VITALS: BP 130/67
[2017-08-26 17:45] LABS: CHLORIDE 95 MEQ/L (99-109); CREATININE 1.7 MG/DL (0.6-1.3); GFR ESTIMATE (CALCULATED) 32 mL/min/; GLUCOSE 112 mg/dL (70-99); POTASSIUM 2.4 MEQ/L (3.7-5.4); SODIUM 133 MEQ/L (136-147); UREA NITROGEN (BUN) 31 mg/dL (9-23)
[2017-08-26 20:03] VITALS: BP 90/54
[2017-08-26 23:45] VITALS: BP 106/58
[2017-08-27 03:11] VITALS: BP 104/60
[2017-08-27 06:38] LABS: C DIFF TOXIN NEGATIVE (NEGATIVE)
[2017-08-27 07:19] VITALS: BP 135/65
[2017-08-27 07:39] LABS: HEMATOCRIT 35.6 % (36.0-46.0); MCH 29.3 PG (29.0-34.0); MCHC 33.7 G/DL (30.0-36.0); MCV 86.8 FL (83-99); RBC DIS.WIDTH-CV 13.6 % (11.8-14.6); RBC DIS.WIDTH-SD 43.6 % (39-53); WHITE BLOOD COUNT 12.8 K/uL (4.1-10.2)
[2017-08-27 07:45] LABS: CHLORIDE 99 MEQ/L (99-109); CREATININE 1.6 MG/DL (0.6-1.3); GFR ESTIMATE (CALCULATED) 34 mL/min/; GLUCOSE 111 mg/dL (70-99); MAGNESIUM 1.7 mg/dl (1.3-2.7); SODIUM 134 MEQ/L (136-147); UREA NITROGEN (BUN) 29 mg/dL (9-23)
[2017-08-27 07:47] LABS: POTASSIUM 3.5 MEQ/L (3.7-5.4)
[2017-08-27 07:50] LABS: PLAT.SUFFICIENCY ADEQUATE
[2017-08-27 08:00] LABS: PLATELET COUNT 176 K/uL (156-360)
[2017-08-27 11:03] VITALS: BP 143/71
[2017-08-27 11:06] LABS: APPEARANCE SL.HAZY ((CLEAR)); BILIRUBIN NEGATIVE; BLOOD NEGATIVE; COLOR AMBER ((YELLOW)); GLUCOSE (STRIP) NEGATIVE; KETONES NEGATIVE; LEUKOCYTES NEGATIVE; NITRITE NEGATIVE; PROTEIN (STRIP) NEGATIVE; SPECIFIC GRAVITY 1.017 (1.000-1.030); UROBILINOGEN 0.2 MG/DL (0.2-1.0)
[2017-08-27 11:24] LABS: EPITHELIAL CELLS RARE /HPF; MUCUS 1+ /LPF; RED BLOOD CELLS RARE /HPF (0-5); WHITE BLOOD CELLS RARE /HPF (0-5)
[2017-08-27 11:25] LABS: BACTERIA 3+ /HPF; UCUL ADDED? YES
[2017-08-27 15:06] VITALS: BP 165/74
[2017-08-27 20:00] VITALS: BP 165/81
[2017-08-28] VITALS: BP 187/86
[2017-08-28 04:13] VITALS: BP 184/85
[2017-08-28 07:00] VITALS: BP 178/86
[2017-08-28 07:13] LABS: ALBUMIN 2.7 G/DL (3.2-4.8); CHLORIDE 101 MEQ/L (99-109); CREATININE 1.2 MG/DL (0.6-1.3); GFR ESTIMATE (CALCULATED) 47 mL/min/; PHOSPHORUS 2.7 mg/dL (2.5-4.9); POTASSIUM 3.2 MEQ/L (3.7-5.4); SODIUM 138 MEQ/L (136-147); UREA NITROGEN (BUN) 30 mg/dL (9-23)
[2017-08-28 07:20] LABS: GLUCOSE 170 mg/dL (70-99)
[2017-08-28 07:40] LABS: BASOPHIL (%) 0.1 % (0-1); EOSINOPHIL (%) 0 % (0-5); HEMATOCRIT 38.7 % (36.0-46.0); IMMATURE GRANULOCYTE (%) 0.9 % (0.0-0.7); LYMPHOCYTE (%) 9.3 % (15-42); MCH 29.2 PG (29.0-34.0); MCHC 33.6 G/DL (30.0-36.0); MONOCYTE (%) 2.4 % (3-12); MONOCYTE COUNT 0.5 K/uL (0-0.8); NEUTROPHIL (%) 87.3 % (45-76); NEUTROPHIL COUNT 18.8 K/uL (1.8-6.4); PLATELET COUNT 197 K/uL (156-360); RBC DIS.WIDTH-CV 13.3 % (11.8-14.6); RBC DIS.WIDTH-SD 42.2 % (39-53); RED BLOOD COUNT 4.45 M/uL (3.80-5.20); WHITE BLOOD COUNT 21.5 K/uL (4.1-10.2)
[2017-08-28 11:07] VITALS: BP 176/85
[2017-08-28 14:28] LABS: TROP-I INTERPRETATION NEGATIVE; TROPONIN-I 0.02 ng/mL (0.0-0.30)
[2017-08-28 15:11] VITALS: BP 171/75
[2017-08-28 19:37] VITALS: BP 137/103
[2017-08-29] VITALS (7 sets, daily range): BP systolic 109–180; BP diastolic 73–98
[2017-08-29 08:47] LABS: PLATELET COUNT 217 K/uL (156-360)
[2017-08-29 08:53] LABS: HEMATOCRIT 41.9 % (36.0-46.0); HEMOGLOBIN 13.9 G/DL (11.9-15.5); MCH 29.1 PG (29.0-34.0); MCHC 33.2 G/DL (30.0-36.0); MCV 87.7 FL (83-99); RBC DIS.WIDTH-CV 13.6 % (11.8-14.6); RED BLOOD COUNT 4.78 M/uL (3.80-5.20)
[2017-08-29 08:54] LABS: WHITE BLOOD COUNT 37.5 K/uL (4.1-10.2)
[2017-08-29 09:16] LABS: CHLORIDE 106 MEQ/L (99-109); GLUCOSE 148 mg/dL (70-99); SODIUM 135 MEQ/L (136-147)
[2017-08-29 09:17] LABS: CREATININE 1.7 MG/DL (0.6-1.3); GFR ESTIMATE (CALCULATED) 32 mL/min/; UREA NITROGEN (BUN) 51 mg/dL (9-23)
[2017-08-30] VITALS (8 sets, daily range): BP systolic 76–128; BP diastolic 38–69
[2017-08-30 07:41] LABS: ALBUMIN 1.8 G/DL (3.2-4.8); CHLORIDE 108 MEQ/L (99-109); CREATININE 1.6 MG/DL (0.6-1.3); GFR ESTIMATE (CALCULATED) 34 mL/min/; PHOSPHORUS 2.3 mg/dL (2.5-4.9); POTASSIUM 4.7 MEQ/L (3.7-5.4); SODIUM 134 MEQ/L (136-147); UREA NITROGEN (BUN) 62 mg/dL (9-23)
[2017-08-30 07:42] LABS: BASOPHIL (%) 0.1 % (0-1); EOSINOPHIL (%) 0 % (0-5); GLUCOSE 99 mg/dL (70-99); HEMATOCRIT 31.9 % (36.0-46.0); IMMATURE GRANULOCYTE (%) 1.8 % (0.0-0.7); LYMPHOCYTE (%) 12.7 % (15-42); LYMPHOCYTE COUNT 2.6 K/uL (1.0-2.8); MCHC 32.9 G/DL (30.0-36.0); MCV 91.1 FL (83-99); MONOCYTE (%) 7.6 % (3-12); MONOCYTE COUNT 1.6 K/uL (0-0.8); NEUTROPHIL (%) 77.8 % (45-76); NEUTROPHIL COUNT 16.1 K/uL (1.8-6.4); PLATELET COUNT 157 K/uL (156-360); RBC DIS.WIDTH-CV 13.9 % (11.8-14.6); RBC DIS.WIDTH-SD 46.6 % (39-53); WHITE BLOOD COUNT 20.7 K/uL (4.1-10.2)
[2017-08-30 07:47] LABS: HEMOGLOBIN 10.5 G/DL (11.9-15.5)
[2017-08-30 12:55] LABS: ERTH.SED.RATE 1 MM/HR (0-30)
[2017-08-31] VITALS (7 sets, daily range): BP systolic 113–140; BP diastolic 55–71
[2017-08-31 07:47] LABS: ALBUMIN 1.8 G/DL (3.2-4.8); CHLORIDE 110 MEQ/L (99-109); GFR ESTIMATE (CALCULATED) > 59 mL/min/; GLUCOSE 94 mg/dL (70-99); PHOSPHORUS 1.8 mg/dL (2.5-4.9); POTASSIUM 4.4 MEQ/L (3.7-5.4); SODIUM 136 MEQ/L (136-147); UREA NITROGEN (BUN) 49 mg/dL (9-23)
[2017-08-31 07:48] LABS: CREATININE 0.9 MG/DL (0.6-1.3)
[2017-08-31 08:04] LABS: BASOPHIL (%) 0.2 % (0-1); EOSINOPHIL (%) 0 % (0-5); IMMATURE GRANULOCYTE (%) 2.1 % (0.0-0.7); MCH 30.2 PG (29.0-34.0); MCHC 33.2 G/DL (30.0-36.0); MCV 90.9 FL (83-99); MONOCYTE (%) 8.7 % (3-12); MONOCYTE COUNT 1.1 K/uL (0-0.8); NEUTROPHIL COUNT 9.7 K/uL (1.8-6.4); PLATELET COUNT 117 K/uL (156-360); RBC DIS.WIDTH-CV 14.2 % (11.8-14.6); WHITE BLOOD COUNT 13.1 K/uL (4.1-10.2)
[2017-08-31 08:11] LABS: HEMOGLOBIN 8.3 G/DL (11.9-15.5); RED BLOOD COUNT 2.75 M/uL (3.80-5.20)
[2017-09-01] VITALS (10 sets, daily range): BP systolic 113–164; BP diastolic 67–88
[2017-09-01 05:22] LABS: HEMATOCRIT 20.1 % (36.0-46.0); MCH 30.2 PG (29.0-34.0); MCHC 33.3 G/DL (30.0-36.0); MCV 90.5 FL (83-99); NRBC (%) 0.7 /100 WBC (0-0); PLATELET COUNT 133 K/uL (156-360); RBC DIS.WIDTH-CV 14.3 % (11.8-14.6); RBC DIS.WIDTH-SD 46.3 % (39-53); RED BLOOD COUNT 2.22 M/uL (3.80-5.20); WHITE BLOOD COUNT 13.5 K/uL (4.1-10.2)
[2017-09-01 05:23] LABS: HEMOGLOBIN 6.7 G/DL (11.9-15.5)
[2017-09-01 05:43] LABS: ALBUMIN 1.7 G/DL (3.2-4.8); CHLORIDE 110 MEQ/L (99-109); CREATININE 0.7 MG/DL (0.6-1.3); GFR ESTIMATE (CALCULATED) > 59 mL/min/; GLUCOSE 91 mg/dL (70-99); PHOSPHORUS 1.7 mg/dL (2.5-4.9); POTASSIUM 4.4 MEQ/L (3.7-5.4); SODIUM 135 MEQ/L (136-147); UREA NITROGEN (BUN) 38 mg/dL (9-23)
[2017-09-01 08:25] LABS: MCV 90.5 FL (83-99)
[2017-09-01 08:26] LABS: HEMOGLOBIN 6.8 G/DL (11.9-15.5)
[2017-09-02 00:24] VITALS: BP 166/70
[2017-09-02 05:02] VITALS: BP 167/75
[2017-09-02 06:32] LABS: HEMATOCRIT 29.5 % (36.0-46.0); MCH 29.3 PG (29.0-34.0); MCHC 33.9 G/DL (30.0-36.0); NRBC (%) 0.9 /100 WBC (0-0); PLATELET COUNT 124 K/uL (156-360); RBC DIS.WIDTH-CV 15.4 % (11.8-14.6); WHITE BLOOD COUNT 16.6 K/uL (4.1-10.2)
[2017-09-02 06:33] LABS: INTER. NORMALIZED RATIO 1.2; MCV 86.5 FL (83-99); RED BLOOD COUNT 3.41 M/uL (3.80-5.20)
[2017-09-02 07:08] LABS: ALBUMIN 1.8 G/DL (3.2-4.8); CHLORIDE 110 MEQ/L (99-109); CREATININE 0.7 MG/DL (0.6-1.3); GFR ESTIMATE (CALCULATED) > 59 mL/min/; GLUCOSE 89 mg/dL (70-99); POTASSIUM 3.8 MEQ/L (3.7-5.4); SODIUM 138 MEQ/L (136-147); UREA NITROGEN (BUN) 32 mg/dL (9-23)
[2017-09-02 07:13] LABS: PHOSPHORUS 2.4 mg/dL (2.5-4.9)
[2017-09-02 08:30] VITALS: BP 133/72
[2017-09-02 11:46] VITALS: BP 108/54
[2017-09-02 16:45] VITALS: BP 109/71
[2017-09-02 20:37] VITALS: BP 133/71
[2017-09-03] VITALS (7 sets, daily range): BP systolic 102–136; BP diastolic 56–73
[2017-09-03 06:35] LABS: CHLORIDE 108 MEQ/L (99-109); CREATININE 0.7 MG/DL (0.6-1.3); GFR ESTIMATE (CALCULATED) > 59 mL/min/; GLUCOSE 94 mg/dL (70-99); POTASSIUM 3.6 MEQ/L (3.7-5.4); SODIUM 136 MEQ/L (136-147); UREA NITROGEN (BUN) 22 mg/dL (9-23)
[2017-09-03 07:01] LABS: HEMATOCRIT 26.1 % (36.0-46.0); HEMOGLOBIN 8.6 G/DL (11.9-15.5); MCV 87.9 FL (83-99); NRBC (%) 0.5 /100 WBC (0-0); PLATELET COUNT 103 K/uL (156-360); RBC DIS.WIDTH-CV 15.4 % (11.8-14.6); RBC DIS.WIDTH-SD 48.8 % (39-53); RED BLOOD COUNT 2.97 M/uL (3.80-5.20); WHITE BLOOD COUNT 10.9 K/uL (4.1-10.2)
[2017-09-03 07:28] LABS: ABS NEUTROPHIL COUNT 8.1; ANISOCYTOSIS 1+; BURR CELLS 1+; EOSINOPHIL ABS CT 0.1; EOSINOPHILS 0.9 % (0-5.0); LYMPHOCYTES 14.5 % (15.0-45.0); METAMYELOCYTES 1.8 %; MICROCYTOSIS 1+; MONOCYTES 5.5 % (0-9.0); MYELOCYTES 2.7 %; NUCLEATED RBC'S 1.8; PLAT.SUFFICIENCY DECREASED; POIKILOCYTOSIS 1+; SEG.NEUTROPHILS 74.6 % (46.0-76.0); SMUDGE CELLS 21.8
[2017-09-04 04:02] VITALS: BP 99/63
[2017-09-04 05:49] LABS: HEMATOCRIT 27.4 % (36.0-46.0); HEMOGLOBIN 9.3 G/DL (11.9-15.5); MCH 30.1 PG (29.0-34.0); MCHC 33.9 G/DL (30.0-36.0); MCV 88.7 FL (83-99); NRBC (%) 0.2 /100 WBC (0-0); PLATELET COUNT 98 K/uL (156-360); RBC DIS.WIDTH-CV 15.8 % (11.8-14.6); RBC DIS.WIDTH-SD 49.2 % (39-53); RED BLOOD COUNT 3.09 M/uL (3.80-5.20); WHITE BLOOD COUNT 10.6 K/uL (4.1-10.2)
[2017-09-04 06:22] LABS: ABS NEUTROPHIL COUNT 8.1; ANISOCYTOSIS 1+; ATYPICAL LYMPHOCYTE 3.6 %; BAND NEUTROPHILS 0.9 % (0-8.0); BURR CELLS 1+; EOSINOPHIL ABS CT 0; LYMPHOCYTES 11.7 % (15.0-45.0); METAMYELOCYTES 0.9 %; MICROCYTOSIS 1+; MONOCYTES 7.2 % (0-9.0); OVALOCYTES 1+; PLAT.SUFFICIENCY DECREASED; POLYCHROMASIA 1+; SEG.NEUTROPHILS 75.7 % (46.0-76.0); TEAR DROP CELLS 1+
[2017-09-04 06:30] LABS: ALBUMIN 1.7 G/DL (3.2-4.8); CHLORIDE 106 MEQ/L (99-109); CREATININE 0.5 MG/DL (0.6-1.3); GFR ESTIMATE (CALCULATED) > 59 mL/min/; GLUCOSE 80 mg/dL (70-99); PHOSPHORUS 2.8 mg/dL (2.5-4.9); POTASSIUM 3.6 MEQ/L (3.7-5.4); SODIUM 135 MEQ/L (136-147); UREA NITROGEN (BUN) 13 mg/dL (9-23)
[2017-09-04 08:00] VITALS: BP 131/71
[2017-09-04 11:50] VITALS: BP 140/87
[2017-09-04 16:00] VITALS: BP 127/69
[2017-09-04 20:00] VITALS: BP 119/67
[2017-09-04 23:47] VITALS: BP 116/65
[2017-09-05 03:43] VITALS: BP 115/69
[2017-09-05 06:41] LABS: CHLORIDE 105 MEQ/L (99-109); CREATININE 0.4 MG/DL (0.6-1.3); GFR ESTIMATE (CALCULATED) > 59 mL/min/; GLUCOSE 75 mg/dL (70-99); SODIUM 134 MEQ/L (136-147); UREA NITROGEN (BUN) 9 mg/dL (9-23)
[2017-09-05 07:29] LABS: HEMATOCRIT 28.6 % (36.0-46.0); HEMOGLOBIN 9.3 G/DL (11.9-15.5); MCH 29.5 PG (29.0-34.0); MCHC 32.5 G/DL (30.0-36.0); MCV 90.8 FL (83-99); PLATELET COUNT 78 K/uL (156-360); RBC DIS.WIDTH-CV 15.9 % (11.8-14.6); RBC DIS.WIDTH-SD 51.3 % (39-53); RED BLOOD COUNT 3.15 M/uL (3.80-5.20); WHITE BLOOD COUNT 8.4 K/uL (4.1-10.2)
[2017-09-05 07:33] LABS: BASOPHIL (%) 0.2 % (0-1); EOSINOPHIL (%) 1.7 % (0-5); EOSINOPHIL COUNT 0.1 K/uL (0-0.3); IMMATURE GRANULOCYTE (%) 3.8 % (0.0-0.7); LYMPHOCYTE (%) 24.1 % (15-42); MONOCYTE (%) 10.3 % (3-12); MONOCYTE COUNT 0.9 K/uL (0-0.8); NEUTROPHIL (%) 59.9 % (45-76); NEUTROPHIL COUNT 5.1 K/uL (1.8-6.4)
[2017-09-05 08:14] VITALS: BP 122/61
[2017-09-05 11:13] VITALS: BP 124/71
[2017-09-05 20:00] VITALS: BP 100/66
[2017-09-06 04:00] VITALS: BP 129/67
[2017-09-06 05:36] LABS: BASOPHIL (%) 0.1 % (0-1); EOSINOPHIL (%) 1.8 % (0-5); EOSINOPHIL COUNT 0.1 K/uL (0-0.3); HEMATOCRIT 26.5 % (36.0-46.0); HEMOGLOBIN 8.7 G/DL (11.9-15.5); IMMATURE GRANULOCYTE (%) 3.4 % (0.0-0.7); LYMPHOCYTE (%) 26.9 % (15-42); LYMPHOCYTE COUNT 1.8 K/uL (1.0-2.8); MCH 29.6 PG (29.0-34.0); MCHC 32.8 G/DL (30.0-36.0); MCV 90.1 FL (83-99); MONOCYTE (%) 9.6 % (3-12); MONOCYTE COUNT 0.7 K/uL (0-0.8); NEUTROPHIL (%) 58.2 % (45-76); NEUTROPHIL COUNT 3.9 K/uL (1.8-6.4); PLATELET COUNT 93 K/uL (156-360); RBC DIS.WIDTH-CV 15.4 % (11.8-14.6); RBC DIS.WIDTH-SD 49.6 % (39-53); RED BLOOD COUNT 2.94 M/uL (3.80-5.20); WHITE BLOOD COUNT 6.8 K/uL (4.1-10.2)
[2017-09-06 05:59] LABS: CHLORIDE 106 MEQ/L (99-109); CREATININE 0.4 MG/DL (0.6-1.3); GFR ESTIMATE (CALCULATED) > 59 mL/min/; GLUCOSE 88 mg/dL (70-99); POTASSIUM 3.5 MEQ/L (3.7-5.4); SODIUM 136 MEQ/L (136-147); UREA NITROGEN (BUN) 6 mg/dL (9-23)
[2017-09-06 09:00] VITALS: BP 108/60
[2017-09-06 19:35] VITALS: BP 118/60
[2017-09-07 00:01] VITALS: BP 109/53
[2017-09-07 05:27] LABS: BASOPHIL (%) 0 % (0-1); EOSINOPHIL (%) 1.7 % (0-5); EOSINOPHIL COUNT 0.1 K/uL (0-0.3); HEMATOCRIT 26.2 % (36.0-46.0); HEMOGLOBIN 8.5 G/DL (11.9-15.5); IMMATURE GRANULOCYTE (%) 2.5 % (0.0-0.7); LYMPHOCYTE COUNT 1.8 K/uL (1.0-2.8); MCH 29.3 PG (29.0-34.0); MCHC 32.4 G/DL (30.0-36.0); MCV 90.3 FL (83-99); MONOCYTE (%) 10.2 % (3-12); MONOCYTE COUNT 0.7 K/uL (0-0.8); NEUTROPHIL (%) 57.6 % (45-76); NEUTROPHIL COUNT 3.7 K/uL (1.8-6.4); PLATELET COUNT 98 K/uL (156-360); RBC DIS.WIDTH-CV 15.4 % (11.8-14.6); RBC DIS.WIDTH-SD 50.4 % (39-53); WHITE BLOOD COUNT 6.4 K/uL (4.1-10.2)
[2017-09-07 05:54] LABS: CHLORIDE 105 MEQ/L (99-109); CREATININE 0.5 MG/DL (0.6-1.3); GFR ESTIMATE (CALCULATED) > 59 mL/min/; GLUCOSE 108 mg/dL (70-99); POTASSIUM 3.3 MEQ/L (3.7-5.4); SODIUM 137 MEQ/L (136-147); UREA NITROGEN (BUN) 6 mg/dL (9-23)
[2017-09-07 07:28] VITALS: BP 116/55
[2017-09-07] MEDS ORDERED: SUCRALFATE1 GM PO (11:03)
[2017-09-07 11:17] VITALS: BP 102/51
== END 2017-09-07 13:56 | DRG 384 ==
LOC: EME 07:07 → 4EAST 11:49 → 5SOUTH 11:49 → EDOF 11:49 → ENRESERV 11:57 → EDOF 12:18 → ENRESERV 12:19 → 5SOUTH 14:04 → ENRESERV 09-01 14:25 → 5SOUTH 09-01 15:46 → 4EAST 09-01 15:51 → ENRESERV 09-06 13:53 → CANRESERV 09-06 13:53 → ENRESERV 09-06 13:54 → 5WEST 09-06 16:38
PROVIDERS: Internal Medicine; Internal Medicine Gastroenterology; Internal Medicine Nephrology; Nurse Practitioner Adult Health; Nurse Practitioner Family; Physician Assistant Medical; Student in an Organized Health Care Education/Training Program
PROC: 0DB58ZX Excision of Esophagus, Via Natural or Artificial Opening Endoscopic, Diagnostic (ICD-10-PCS; principal; 2017-09-01)
PROC: 30233N1 Transfusion of Nonautologous Red Blood Cells into Peripheral Vein, Percutaneous Approach (ICD-10-PCS; 2017-09-01)
PROC: 0DJ08ZZ Inspection of Upper Intestinal Tract, Via Natural or Artificial Opening Endoscopic (ICD-10-PCS; 2017-09-04)
PROC: 0DBE8ZX Excision of Large Intestine, Via Natural or Artificial Opening Endoscopic, Diagnostic (ICD-10-PCS; 2017-09-05)
DX: K25.9 Gastric ulcer, unspecified as acute or chronic, without hemorrhage or perforation (principal); N17.9 Acute kidney failure, unspecified; D62 Acute posthemorrhagic anemia; N39.0 Urinary tract infection, site not specified; K22.10 Ulcer of esophagus without bleeding; K29.80 Duodenitis without bleeding; K50.90 Crohn's disease, unspecified, without complications; K55.9 Vascular disorder of intestine, unspecified; K26.9 Duodenal ulcer, unspecified as acute or chronic, without hemorrhage or perforation; K29.70 Gastritis, unspecified, without bleeding; K57.30 Diverticulosis of large intestine without perforation or abscess without bleeding; R64 Cachexia; K21.9 Gastro-esophageal reflux disease without esophagitis; I73.9 Peripheral vascular disease, unspecified; I10 Essential (primary) hypertension; E87.0 Hyperosmolality and hypernatremia; E87.1 Hypo-osmolality and hyponatremia; E87.6 Hypokalemia; E86.0 Dehydration; E83.42 Hypomagnesemia; E78.5 Hyperlipidemia, unspecified; G89.29 Other chronic pain; F41.9 Anxiety disorder, unspecified; Z79.899 Other long term (current) drug therapy; F31.9 Bipolar disorder, unspecified; T38.0X5A Adverse effect of glucocorticoids and synthetic analogues, initial encounter; F17.210 Nicotine dependence, cigarettes, uncomplicated; Z90.49 Acquired absence of other specified parts of digestive tract; Z90.710 Acquired absence of both cervix and uterus; Z79.02 Long term (current) use of antithrombotics/antiplatelets; Z79.82 Long term (current) use of aspirin; Z82.3 Family history of stroke
CPT/HCPCS: 71010; 71045; 74176; 80048; 80048 91; 80053; 80069; 81003; 82948; 83605; 83630; 83690; 83735; 84484; 85014; 85018; 85025; 85027; 85610; 85651; 86140; 86850; 86900; 86901; 86920; 87040; 87077; 87086; 87177; 87186; 87329; 87493; 87506; 88305; 88312; 93005; 99281; 99285; C9113; J0696; J1650; J1940; J2250; J2270; J2405; J2765; J2930; J3475; J3480; J7030; J7040; J7120; P9016; S0030

== ENCOUNTER 2017-10-08 12:23 | Inpatient (IN) | payer OTHER ==
[~2017-10-08] VITALS: Ht 162.6 cm; Wt 46.5 kg
[~2017-10-08 12:23] MED LIST changes: +ASPIR-LOW81 MG PO; +SUCRALFATE1 GM PO
[2017-10-08 13:09] LABS: HEMATOCRIT 35.3 % (36.0-46.0); MCH 29.4 PG (29.0-34.0); MCHC 34.3 G/DL (30.0-36.0); MCV 85.9 FL (83-99); PLATELET COUNT 260 K/uL (156-360); RBC DIS.WIDTH-CV 14.6 % (11.8-14.6); RBC DIS.WIDTH-SD 46.1 % (39-53)
[2017-10-08 13:10] LABS: HEMOGLOBIN 12.1 G/DL (11.9-15.5); RED BLOOD COUNT 4.11 M/uL (3.80-5.20)
[2017-10-08 13:18] LABS: CHLORIDE 97 mEq/L (99-109); POTASSIUM 2.8 mEq/L (3.7-5.4); SODIUM 139 mEq/L (136-147)
[2017-10-08 13:20] LABS: GLUCOSE 128 mg/dL (70-99)
[2017-10-08 13:24] LABS: CREATININE 1.3 mg/dL (0.6-1.3); GFR ESTIMATE (CALCULATED) 43 mL/min/
[2017-10-08 13:25] LABS: UREA NITROGEN (BUN) 33 mg/dL (9-23)
[2017-10-08] MEDS ORDERED: LIPITOR20 MG PO (14:52)
[2017-10-08] MEDS ORDERED: EFFEXOR37.5 MG PO (14:53)
[2017-10-08] MEDS ORDERED: KLOR-CON M2020 MEQ PO (14:58)
[2017-10-08] MEDS ORDERED: TRAZODONE HCL50 MG PO ×2 (14:59→15:11)
[2017-10-08] MEDS ORDERED: ZYPREXA7.5 MG PO (15:01)
[2017-10-08] MEDS ORDERED: XARELTO15 MG PO (15:01)
[2017-10-08] MEDS ORDERED: XARELTO20 MG PO (15:05)
[2017-10-08] MEDS ORDERED: FERROUS SULFAT325 MG PO (15:06)
[2017-10-08] MEDS ORDERED: VANCOMYCIN125 MG/2.5 PO (15:07)
[2017-10-08] MEDS ORDERED: DULCOLAX10 MG PR (15:08)
[2017-10-08] MEDS ORDERED: FLEET ENEMA-AD118 ML PR (15:09)
[2017-10-08] MEDS ORDERED: MILK OF MAGN PO (15:10)
[2017-10-08] MEDS ORDERED: PROMETHAZINE HC25 MG PR (15:11)
[2017-10-08] MEDS ORDERED: TYLENOL REGULA325 MG PO (15:12)
[2017-10-08 17:50] VITALS: BP 168/101
[2017-10-08 20:00] VITALS: BP 119/70
[2017-10-08 23:15] VITALS: BP 123/68
[2017-10-08 23:34] LABS: CHLORIDE 102 mEq/L (99-109); POTASSIUM 3.2 mEq/L (3.7-5.4); SODIUM 141 mEq/L (136-147)
[2017-10-08 23:35] LABS: GLUCOSE 127 mg/dL (70-99)
[2017-10-08 23:39] LABS: CREATININE 0.9 mg/dL (0.6-1.3); GFR ESTIMATE (CALCULATED) > 59 mL/min/
[2017-10-08 23:40] LABS: UREA NITROGEN (BUN) 32 mg/dL (9-23)
[2017-10-09 04:38] VITALS: BP 124/70
[2017-10-09 06:36] LABS: BASOPHIL (%) 0.1 % (0-1); EOSINOPHIL (%) 0 % (0-5); HEMATOCRIT 33.7 % (36.0-46.0); HEMOGLOBIN 10.8 G/DL (11.9-15.5); IMMATURE GRANULOCYTE (%) 1.5 % (0.0-0.7); LYMPHOCYTE (%) 13.3 % (15-42); LYMPHOCYTE COUNT 2.1 K/uL (1.0-2.8); MCH 28.3 PG (29.0-34.0); MCV 88.2 FL (83-99); MONOCYTE (%) 5.3 % (3-12); MONOCYTE COUNT 0.8 K/uL (0-0.8); NEUTROPHIL (%) 79.8 % (45-76); NEUTROPHIL COUNT 12.4 K/uL (1.8-6.4); PLATELET COUNT 237 K/uL (156-360); RBC DIS.WIDTH-CV 14.6 % (11.8-14.6); RBC DIS.WIDTH-SD 47.2 % (39-53); RED BLOOD COUNT 3.82 M/uL (3.80-5.20); WHITE BLOOD COUNT 15.6 K/uL (4.1-10.2)
[2017-10-09 06:59] LABS: CHLORIDE 106 MEQ/L (99-109); CREATININE 0.9 MG/DL (0.6-1.3); GFR ESTIMATE (CALCULATED) > 59 mL/min/; GLUCOSE 121 mg/dL (70-99); SODIUM 140 MEQ/L (136-147); UREA NITROGEN (BUN) 34 mg/dL (9-23)
[2017-10-09 07:33] VITALS: BP 164/74
[2017-10-09 10:51] VITALS: BP 128/80
[2017-10-09 16:36] VITALS: BP 122/76
[2017-10-09 19:24] VITALS: BP 120/78
[2017-10-09 22:56] VITALS: BP 137/64
[2017-10-10 03:23] VITALS: BP 124/72
[2017-10-10 06:42] LABS: CHLORIDE 110 MEQ/L (99-109); CREATININE 0.8 MG/DL (0.6-1.3); GFR ESTIMATE (CALCULATED) > 59 mL/min/; GLUCOSE 122 mg/dL (70-99); POTASSIUM 3.4 MEQ/L (3.7-5.4); SODIUM 145 MEQ/L (136-147); UREA NITROGEN (BUN) 35 mg/dL (9-23)
[2017-10-10 07:11] VITALS: BP 138/81
[2017-10-10 12:11] VITALS: BP 145/91
[2017-10-10 15:30] VITALS: BP 133/91
[2017-10-10 19:47] VITALS: BP 112/73
[2017-10-11 00:58] VITALS: BP 101/70
== END 2017-10-11 03:13 | DRG 372 ==
LOC: EME 12:23 → 5EAST 14:31 → EDOF 14:31 → ENRESERV 14:59 → 5EAST 17:22
PROVIDERS: Internal Medicine
PROC: 5A12012 Performance of Cardiac Output, Single, Manual (ICD-10-PCS; principal; 2017-10-11)
DX: A04.72 Enterocolitis due to Clostridium difficile, not specified as recurrent (principal); I82.401 Acute embolism and thrombosis of unspecified deep veins of right lower extremity; E87.6 Hypokalemia; E86.0 Dehydration; I10 Essential (primary) hypertension; E78.5 Hyperlipidemia, unspecified; K21.0 Gastro-esophageal reflux disease with esophagitis; K26.9 Duodenal ulcer, unspecified as acute or chronic, without hemorrhage or perforation; F31.9 Bipolar disorder, unspecified; F41.1 Generalized anxiety disorder; G89.29 Other chronic pain; I73.9 Peripheral vascular disease, unspecified; K58.9 Irritable bowel syndrome, unspecified; Z91.14 Patient's other noncompliance with medication regimen; Z87.891 Personal history of nicotine dependence
CPT/HCPCS: 80048; 80048 91; 85025; 85027; 99281; 99285; A6214; J2405; J3480; J7030; J7040; J7050; S0030